=== PATIENT | male | born 1975 | race Caucasian/White ===

== ENCOUNTER 2022-02-09 08:27 | Outpatient (REF) | payer OTHER, SELFPAY ==
[2022-02-09 12:49] LABS: Alanine Aminotransferase 25 U/L (0-40); Anion Gap 13 (12-20); Aspartate Amino Transferase 18 U/L (5-37); Blood Urea Nitrogen 11 mg/dL (9-16); Calcium 9.4 mg/dL (8.4-10.2); Carbon Dioxide 26 mmol/L (22-29); Chloride 103 mmol/L (96-108); Cholesterol 222 mg/dL; Estimated Glomerular Filt Rate > 60; Glucose Fasting 92 mg/dL (60-99); HDL Cholesterol 55 mg/dL; LDL Cholesterol Calculated 140 mg/dl; PSA,Total (Free>4and<10) 0.75 ng/mL (0.00-4.00); Potassium 4.2 mmol/L (3.3-5.1); Sodium 138 mmol/L (135-145); Triglycerides 139 mg/dL
== END 2022-02-09 08:28 | disposition home or self-care (01) ==
LOC: HO.HMGCLDS 08:27
PROVIDERS: PCP Internal Medicine; Visit Provider Internal Medicine
DX: I87.2 Venous insufficiency (chronic) (peripheral) (principal); N40.1 Benign prostatic hyperplasia with lower urinary tract symptoms; E66.9 Obesity, unspecified; Z12.5 Encounter for screening for malignant neoplasm of prostate
CPT/HCPCS: 36415; 80048; 80061; 84153; 84450; 84460

== ENCOUNTER 2022-08-26 12:29 | Emergency (ER) | payer OTHER, SELFPAY ==
--- NOTE | ~2022-08-26 | XR_ITS ---
EXAMINATION: XR FOOT, RIGHT CLINICAL INFORMATION: Right foot pain. COMPARISON: None available. TECHNIQUE: AP, lateral, and oblique views of the right foot. FINDINGS: Mild first metatarsophalangeal degenerative joint changes are seen. There is no acute fracture or dislocation. The phalanges and metatarsals appear intact. There is mild soft tissue swelling. XR/XR foot RT min 3V IMPRESSION: Mild first metatarsophalangeal osteoarthritis and mild soft tissue swelling. No acute fracture.
--- NOTE | ~2022-08-26 | XR_ITS ---
EXAMINATION: XR ANKLE, RIGHT CLINICAL INFORMATION: Right ankle pain. COMPARISON: None available. TECHNIQUE: AP, lateral, and mortise views of the right ankle. An indicator arrow points to the lateral malleolus. FINDINGS: There is mild to moderate soft tissue swelling, more pronounced laterally. The ankle joint and mortise are intact. A corticated osseous densities seen subjacent to the lateral malleolus. There is no acute fracture or dislocation. The tarsal bones are normally aligned. XR/XR ankle RT min 3V IMPRESSION: Mild to moderate soft tissue swelling, more pronounced laterally without acute underlying osseous abnormality. Corticated osseous density subjacent to the lateral malleolus does not appear acute and could represent an ossification center. If the patient's pain and swelling persists or worsens, short-term repeat study is recommended to assess for change as indicated.
--- NOTE | ~2022-08-26 | XR_ITS ---
EXAMINATION: XR KNEE, RIGHT CLINICAL INFORMATION: Right knee pain. COMPARISON: None available. TECHNIQUE: Four views of the right knee. FINDINGS: Anterior cruciate ligament reconstruction post surgical changes are seen. An orthopedic button is seen laterally in the distal femoral metaphysis. Mild tricompartmental degenerative joint changes are seen. Mild femoral-tibial chondrocalcinosis is noted. There is no acute fracture, dislocation or joint effusion. The soft tissues are unremarkable. XR/XR knee RT 4V IMPRESSION: Postsurgical changes and mild degenerative joint changes suggesting osteoarthritis without overt acute abnormality.
[2022-08-26 12:43] VITALS: BP 168/95; PULSE 92; RESP 18; TEMP 36.2; O2SAT 98; BMI 34.3
--- NOTE | 2022-08-26 12:45 | ED_ITS ---
HPI - General Adult General Chief complaint: Fall Stated complaint: r ankle and knee inj at work Time Seen by Provider: 08/26/22 13:36 Source: patient, RN notes reviewed and old records reviewed Mode of arrival: ambulatory History of Present Illness HPI narrative: 46-year-old male with no significant past medical history presenting to the ED complaining of right knee, ankle, and foot pain/swelling s/p falling off a 3 ft ladder around 09:00 at work. Reports unclear how he fell however whole ladder tipped over, patient fell on right side, denies head trauma or LOC. Denies taking anticoagulation. Was minimally ambulatory after incident. Reports mild paresthesias to toes. Denies injury to the area, neck/back pain, urinary incontinence/retention, abdominal pain Onset (ago): hour(s) Related Data Home Medications Medication Instructions Recorded Confirmed No Known Home Meds 03/31/21 Allergies Allergy/AdvReac Type Severity Reaction Status Date / Time No Known Allergies Allergy Verified 08/26/22 12:46 Review of Systems Review of Systems: Constitutional: No Fever, No Chills ENT/Mouth: No Ear Pain, No Nasal Congestion, No sore throat, No Rhinorrhea, No Swallowing Difficulty Cardiovascular: No Chest Pain, No SOB Respiratory: No Cough, No Sputum, No Wheezing Gastrointestinal: No Nausea, No Vomiting, No Diarrhea, No Constipation, No Abdominal pain Genitourinary: No Dysuria, No Urinary Incontinence/retention, No Urgency, No Flank Pain Musculoskeletal: + joint pain, No Myalgias, + Joint Swelling Skin: No Skin Lesions, No rash Neuro: No Weakness, No Numbness, + Paresthesias Yes all other systems are reviewed and are negative Constitutional: Constitutional: Reports as per [facility] Past Medical History Attestation statement: The following information was validated with the patient. Source: old records reviewed Medical History BPH loc w urin obs/LUTS COVID-19 vaccine series declined History of COVID-19 Laceration of left ring finger Obesity (BMI 30.0-34.9) Peripheral venous insufficiency Refused influenza vaccine Tinea unguium Varicose veins of left lower extremity Surgical History History of repair of anterior cruciate ligament of right knee Hx of arthroscopy of right knee Status post phlebectomy Family History Family History Mother Breast cancer Myocardial infarct, Onset Age: 72 Father Factor V Leiden CAD (coronary artery disease) Myocardial infarct Social History Social History Housing: House Alcohol intake: current Alcohol intake frequency: a few times a month Patient Tobacco Use Status: Never used Tobacco Smoked in Last 30 Days: No e-Cigarette/Vaping Use: Never Used Use of substances other than those prescribed or required for medical reasons: No Advance Directives: No Advance Directives Information Provided: No service: Yes Current occupational status: employed Cognitive needs: No Hearing needs: No Vision needs: No Physical Exam ED Vital Signs: Vital Signs - 24 hr 08/26/22 12:43 08/26/22 14:45 Temperature 97.2 F Pulse Rate 92 80 Respiratory Rate 18 18 Blood Pressure 168/95 H 147/102 H Pulse Oximetry 98 99 Oxygen Delivery Method Room Air Room Air BMI result Body Mass Index 34.3 Const General: cooperative, healthy appearing and no acute distress Orientation/consciousness: patient oriented x3 Limitations: no limitations HENMT Head: Yes normal to inspection, Yes atraumatic, No Govea's sign and No raccoon eyes Ears: hearing grossly normal bilaterally General nose exam: Normal external nose present Face and sinus: Yes normal facial exam Eyes General: appearance normal, both eyes and all related structures EOM: EOMs intact bilaterally Neck Neck: Yes normal visual inspection and Yes no meningeal signs Chest Chest palpation & inspection: normal inspection of the chest, no crepitus and no tenderness Resp Effort & Inspection: normal respiratory effort and no respiratory distress Cardio Rate: regular rate GI Inspection: Yes normal to inspection Palpation (GI): Soft to palpation, nontender, no guarding and not rigid General: Yes no CVA tenderness Back/Spine/Pelvis Other: No midline cervical/thoracic/lumbar spinous tenderness/step-off or deformity Back: no CVA tenderness Skin Rashes: no rashes Wounds: no wounds Neuro General: patient oriented x3, tone normal, moves all extremities, no meningeal signs and no focal motor deficits Extrem Other: Right knee without appreciable deformity. + tender to palpation to medial aspect. Full range of motion intact. Neurovascular intact distally Right ankle and foot with noted swelling and diffuse tenderness to palpation. No erythema/ecchymosis or warmth. Limited ROM to ankle secondary to pain. Neurovascularly intact Course Course Course Narrative: This is an RME: Additional HPI, ROS, PE not included below will be deferred to primary provider. 46 year old male presents s/p fall off 3 ft ladder earlier this am. Reports he fell onto his left side but is having R. foot, ankle and knee pain. No head strike or LOC. Not on thinners. Told to come in [place] [facility]- imaging XR knee RT 4V IMPRESSION: Postsurgical changes and mild degenerative joint changes suggesting osteoarthritis without overt acute abnormality. XR ankle RT min 3V IMPRESSION: Mild to moderate soft tissue swelling, more pronounced laterally without acute underlying osseous abnormality. Corticated osseous density subjacent to the lateral malleolus does not appear acute and could represent an ossification center. ? If the patient's pain and swelling persists or worsens, short-term repeat study is recommended to assess for change as indicated. XR foot RT min 3V IMPRESSION: Mild first metatarsophalangeal osteoarthritis and mild soft tissue swelling. No acute fracture. > patient is supplied with Aircast and crutches to be weight-bearing as tolerated and have PCP/orthopedic follow-up as needed Results discussed with patient including worrisome signs and symptoms and strict return precautions, and when to return to the emergency department. They verbalized understanding and feel safe for discharge at this time. Medical Decision Making Medical Decision Making MDM Narrative: 46-year-old male with no significant past medical history presenting to the ED complaining of right knee, ankle, and foot pain/swelling s/p falling off a 3 ft ladder around 09:00AM at work. On exam vital signs stable, NAD, nontoxic appearing, no evidence of head trauma, no midline spinous tenderness throughout, physical exam as above with right ankle/foot swelling and tenderness as well as right knee medial aspect tenderness. Concern for fracture versus sprain. Low suspicion for ICH, septic joint, cellulitis Plan: X-rays Please refer to course for remaining clinical decision making, interpretation of labs/imaging results, and discussions with consultants and/or family members. Differential Diagnosis Differential Diagnoses: The differential diagnosis associated with the presentation includes As above Admission/Observation Consideration of admission/observation: Escalation of care including admission/observation considered Independent Interpretation I performed an independent interpretation of an: Plain X-Ray Radiology Impression Discussion of test interpretation with radiology: I have reviewed the radiologist's reading. External Record Review External record reviewed: Inpatient record, Office record, Outpatient record, Prior outpatient labs, Prior outpatient radiology, Primary care record and Out side ED record Tests considered The following testing was considered but not selected: As above Prescription Management I considered prescription management with: Pain Medication Discharge Plan Discharge Clinical Impression: Ankle sprain, Knee osteoarthritis Patient Disposition: Home, Self-Care Instructions: Ankle Sprain (DC), Osteoarthritis (DC) Additional Instructions: Your x-rays do not show any acute/new fractures, you do have a increased density seen on your ankle x-ray, if pain and swelling persists or worsens we do recommend repeat x-ray in the next week Wear Aircast as needed for comfort, compression and stability Use crutches as needed, bear weight as tolerated Ice and elevate Take Tylenol/ Motrin for pain/swelling If symptoms persist or worsen/pain becomes unbearable or area looks infected return to the ED Prescriptions: No Action No Known Home Meds Referrals: [facility] [place] [facility] [Provider Group] (as needed) [facility] [Outside] Melida Gaspar MD [Primary Care Provider] - Stand Alone Forms: Work/School Release Interventions: ED Discharge Assessment Last Done: 08/26/22 14:46 Discharge Date/Time: 08/26/22 14:47
[2022-08-26 14:45] VITALS: BP 147/102; PULSE 80; RESP 18; O2SAT 99
== END 2022-08-26 14:47 | disposition home or self-care (01) ==
PROVIDERS: Emergency Provider Emergency Medicine; PCP Internal Medicine
DX: S93.401A Sprain of unspecified ligament of right ankle, initial encounter (principal); M25.561 Pain in right knee; M79.671 Pain in right foot; W01.0XXA Fall on same level from slipping, tripping and stumbling without subsequent striking against object, initial encounter; Y93.9 Activity, unspecified; Y92.9 Unspecified place or not applicable; Y99.0 Civilian activity done for income or pay
CPT/HCPCS: 73564; 73610; 73630; 99283; 99284

== ENCOUNTER → 2022-09-01 15:12 | Outpatient (BNVA) | payer OTHER, SELFPAY | PROVIDERS: PCP Internal Medicine; Visit Provider Physician Assistant | DX: S93.401D Sprain of unspecified ligament of right ankle, subsequent encounter (principal); W11.XXXD Fall on and from ladder, subsequent encounter | CPT/HCPCS: 73700; 99204 ==

== ENCOUNTER → 2022-09-07 15:38 | Outpatient (BNVA) | payer OTHER, SELFPAY | PROVIDERS: PCP Internal Medicine; Visit Provider Physician Assistant Medical | DX: S93.401D Sprain of unspecified ligament of right ankle, subsequent encounter (principal); W01.0XXD Fall on same level from slipping, tripping and stumbling without subsequent striking against object, subsequent encounter | CPT/HCPCS: 99213 ==

== ENCOUNTER 2022-12-06 13:03 | Outpatient (AMB) | payer OTHER, SELFPAY ==
--- NOTE | 2022-12-06 13:36 | MHC.PC.OV ---
Vital Signs 12/06/22 13:37 Height 5 ft 4 in Weight 210 lb BMI 36.0 BP 130/90 H Blood Pressure Location Rt brachial Position Sitting Pulse 94 Pulse Source Pulse Oximeter Pulse Oximetry (%) 97 Oxygen Delivery Method Room Air Intake Visit Reasons: PE Intake Note: Pt is here today for his PE Allergies No Known Allergies Allergy (Verified 12/06/22 13:48) Medication List - Last Reconciled 12/06/22 by Melida Gaspar MD No Known Home Meds Tobacco use date assessed: 12/06/22 Dental Screening Dental Screen Date: 12/06/22 Did you have a dental visit in the last 12 months?: Yes Did you have a dental problem in the last 6 months where you did not have access to dental care?: No Was dental information given to patient?: Patient has dentist HPI PE HPI Details 47-year-old male, here today for his physical exam. He has history of benign prostatic hyperplasia without urinary symptoms , obesity, hx peripheral venous insufficiency,s/p phlebectomy by Dr. Dayday Marie, history of pillo COVID-19 infection twice, but does not want to get vaccinated. HPI Comments History of Present Illness Details 47-year-old male, here today for his physical exam. He has been feeling well, with no complaints at present time. Overdue for colon cancer screening, but does not want to do colonoscopy procedure. He also does not want to get any vaccinations. [facility] Medical History (Updated 12/06/22 @ 23:12 by Melida Gaspar MD) Hyperlipidemia COVID-19 vaccine series declined Refused influenza vaccine Tinea unguium Peripheral venous insufficiency Laceration of left ring finger Varicose veins of left lower extremity Obesity (BMI 30.0-34.9) History of COVID-19 BPH loc w urin obs/LUTS Surgical History Status post phlebectomy Hx of arthroscopy of right knee History of repair of anterior cruciate ligament of right knee Family History Mother Breast cancer Myocardial infarct, Onset Age: 72 Father Factor V Leiden CAD (coronary artery disease) Myocardial infarct Social History Housing: House Alcohol intake: current Alcohol intake frequency: a few times a month Patient Tobacco Use Status: Never used Tobacco e-Cigarette/Vaping Use: Never Used service: Yes Current occupational status: unemployed Cognitive needs: No Hearing needs: No Vision needs: No Questionnaire PHQ-9 Over the last 2 weeks, how often have you been bothered by any of the following problems? 1. Little interest or pleasure in doing things: not at all 2. Feeling down, depressed, or hopeless: not at all 3. Trouble falling or staying asleep, or sleeping too much: not at all 4. Feeling tired or having little energy: not at all 5. Poor appetite or overeating: not at all 6. Feeling bad about yourself - or that you are a failure or have let yourself or your family down: not at all 7. Trouble concentrating on things, such as reading the newspaper or watching television: not at all 8. Moving or speaking so slowly that other people could have noticed. Or the opposite - being so fidgety or restless that you have been moving around a lot more than usual: not at all 9. Thoughts that you would be better off or of hurting yourself in some way: not at all Total score: 0 Depression Screening Interpretation: Negative Depression Screening Done: Yes 22784 - PHQ-9 Billing: Yes Source: Developed by Drs. Karsten Owens, Maggie Anderson, Dioni Mcclendon and colleagues, with an educational amos from [email or web address]. Thrive Questionnaire Date Thrive assessed: 12/06/22 I am a: Patient What is your living situation today?: I have a steady place to live Within the past 12 months, did the food you bought not last and you didn't have the money to get more?: Never true Within the past 12 months, did you worry whether your food would run out before you got money to buy more?: Never true Do you have trouble paying for medicines?: No Do you have trouble getting transportation to medical appointments?: No Do you have trouble paying your heating and electricity bill?: No Do you have trouble taking care of your child, family member or friend?: No Do you have trouble with day-to-day activities such as bathing, preparing meals, shopping, managing finances, etc.?: No Are you currently unemployed and looking for a job?: No Are you interested in more education?: No AUDIT C Alcohol Use Questionnaire (AUDIT-C) 1. How often do you have a drink containing alcohol?: Monthly or less 2. How many drinks containing alcohol do you have on a typical day when you are drinking?: 1 or 2 3. How often do you have six or more drinks on one occasion?: Never Total Score: 1 LEOPOLDO-7 AMB Questionnaire LEOPOLDO-7 Date LEOPOLDO - 7 assessed: 12/06/22 Feeling nervous, anxious, or on edge: 0 = Not at all Not being able to stop or control worryin = Not at all Worrying too much about different things: 0 = Not at all Trouble relaxin = Not at all Being so restless that it is hard to sit still: 0 = Not at all Becoming easily annoyed or irritable: 0 = Not at all Feeling afraid as if something awful might happen: 0 = Not at all Total LEOPOLDO-7 score (0-4 normal; 5-9 mild; 10-14 moderate; 15-21 severe): 0 Source: Developed by Drs. Karsten Owens, Maggie Anderson, Dioni Mcclendon and colleagues, with an educational amos from [email or web address]. LEOPOLDO-7 Assessment Billing LEOPOLDO-7 Assessment Tool: LEOPOLDO-7 Assessment 45166 Review of Systems Const Denies body aches, Denies fatigue, Denies fever(s), Denies headache(s) and Denies weakness Eyes Details: farsighted, Denies change in vision ENT Denies dizziness, Denies headache(s), Denies nasal congestion and Denies nasal discharge Card Denies chest pain, Denies lightheadedness, Denies palpitations and Denies dyspnea Resp Denies cough, Denies dyspnea and Denies wheezing GI Denies abdominal pain, Denies change in bowel habits and Denies heartburn Denies dysuria, Denies urinary frequency and Denies urinary urgency Musc Reports no additional complaints Skin/Breast Denies lesions and Denies rash Neuro Denies dizziness, Denies headache(s) and Denies weakness Psych Reports no additional complaints Endo Denies fatigue, Denies polydipsia, Denies polyuria and Denies palpitations Carrillo/Lymph Denies easy bruising Aller/Immun Denies seasonal rhinorrhea and Denies wheezing Physical exam (Primary Care) Vital Signs: Last Vital Signs Pulse 94 12/06/22 13:37 BP 130/90 H 12/06/22 13:37 Pulse Ox 97 12/06/22 13:37 Oxygen Delivery Method Room Air 12/06/22 13:37 BMI result Body Mass Index 36.0 BMI Assessment/Plan discussion: High BMI High, discussed plan: lifestyle, weight reduction, dietary, physical activity and alcohol moderation Tobacco/Smoking Status: Tobacco use Status Tobacco use date assessed 12/06/22 12/06/22 13:41 Patient Tobacco Use Status Never used Tobacco 12/06/22 13:41 e-Cigarette/Vaping Use Never Used 12/06/22 13:41 PHQ-9: PHQ-9 Score PHQ-9: Total score 0 12/06/22 13:50 Depression Screening Interpretation: Negative Thrive Assessment: Date of Thrive Assessment Date Thrive assessed 12/06/22 12/06/22 13:44 Const Other: Alert oriented x3, obese, no acute cardiorespiratory distress, ambulatory normal gait Orientation/consciousness: patient oriented x3 HENMT Head: Yes normocephalic and Yes atraumatic General nose exam: Normal external nose present and No nasal discharge present Face and sinus: Yes face symmetric Mouth: Normal oral and palatal mucosa present and moist mucous membranes Eyes General: appearance normal, both eyes and all related structures Neck Other: Supple, no lymphadenopathy palpated, thyroid gland nonpalpable, full range of motion Chest Chest palpation & inspection: normal inspection of the chest Resp Effort & Inspection: normal respiratory effort and able to speak in complete sentences Auscultation: clear to auscultation bilaterally Cardio Other: S1-S2 present regular rate and rhythm GI Other: Normal bowel sounds, nontender, no mass palpated Back/Spine/Pelvis Back: No back tenderness Skin General skin exam: no rashes or lesions noted Neuro General: patient oriented x3, gait normal, tone normal, moves all extremities, Normal light touch and pain sensation, no focal motor deficits and CN's II-XI intact bilaterally Extrem General: Yes full ROM, Yes no joint enlargement, Yes no clubbing, cyanosis or edema, Yes no pedal edema, Yes no calf tenderness and Yes normal gait Psych Appearance: grossly normal and well kempt Speech and movement: Normal speech and movement present Affect: normal affect Attitude: cooperative Assessment and Plan Assessment & Plan (1) Adult general medical exam: Code(s): Z00.00 - Encounter for general adult medical examination without abnormal findings Plan: Will check appropriate labs. Recommended dental visit every 6 months and regular eye exams, at least every 2 years. Take adequate calcium in diet and vitamin-D 3 at 2000 IU per cap once a day, in addition to weight-bearing exercises to help maintain good muscle tone and weight control. Instructed to do self-exam to check for any mass. Patient declines getting any vaccines. Does not want to get colonoscopy screening for colon cancer but willing to do Cologuard test, which was ordered today (2) Hyperlipidemia: Code(s): E78.5 - Hyperlipidemia, unspecified Qualifiers: Hyperlipidemia type: pure hypercholesterolemia Qualified Code(s): E78.00 - Pure hypercholesterolemia, unspecified Plan: Fasting lipid panel ordered, reinforced importance of following healthy diet and getting regular exercise. (3) Obesity (BMI 30.0-34.9): Code(s): E66.9 - Obesity, unspecified Plan: Recommended focusing on improving health instead of dieting. Mediterranean diet is a healthy diet that helps, limit food high in fat, sugar, and calories. Eat slowly, pay attention to portion sizes, plan your meals ahead of time, start regular physical activity, at least 150 minutes of moderate intensity exercise, or 90 minutes per week of vigorous exercise. Keeping a food diary, tracking what you eat and your physical activity can help assess what improvements you can make. There are many health problems associated with being overweight/obese, so it is important to improve your diet and exercise. There are medications and surgical options available, but Lifestyle changes are the 1st step. (4) Refused influenza vaccine: Code(s): Z28.21 - Immunization not carried out because of patient refusal (5) COVID-19 vaccine series declined: Code(s): Z28.21 - Immunization not carried out because of patient refusal; Z28.310 - Unvaccinated for COVID-19 Orders: Orders Lipid Panel Today E66.9 - Obesity, unspecified, E78.5 - Hyperlipidemia, unspecified Basic Metabolic Panel Fasting Today E66.9 - Obesity, unspecified, E78.5 - Hyperlipidemia, unspecified Vitamin D 25-OH Total Today E66.9 - Obesity, unspecified, E78.5 - Hyperlipidemia, unspecified Alanine Aminotransferase Today E66.9 - Obesity, unspecified, E78.5 - Hyperlipidemia, unspecified Aspartate Amino Transferase Today E66.9 - Obesity, unspecified, E78.5 - Hyperlipidemia, unspecified Referrals Cologuard Test Z12.11 - Encounter for screening for malignant neoplasm of colon, Z12.12 - Encounter for screening for malignant neoplasm of rectum Coding Level of Care Code Est Pt Prev Care 40-64y(61773) Diagnoses Adult general medical exam Z00.00 Pure hypercholesterolemia E78.00 Hyperlipidemia type: pure hypercholesterolemia Obesity (BMI 30.0-34.9) E66.9 Refused influenza vaccine Z28.21 COVID-19 vaccine series declined Z28.21; Z28.310 Additional Codes LEOPOLDO-7 Assessment Billing - LEOPOLDO-7 Assessment Tool: LEOPOLDO-7 Assessment [id number] ([id number])
[2022-12-06 13:37] VITALS: BP 130/90; PULSE 94; O2SAT 97; BMI 36.0
== END 2022-12-06 14:07 | disposition home or self-care (01) ==
PROVIDERS: Visit Provider Internal Medicine
DX: Z00.00 Encounter for general adult medical examination without abnormal findings (principal); E78.00 Pure hypercholesterolemia, unspecified; E66.9 Obesity, unspecified; Z68.36 Body mass index [BMI] 36.0-36.9, adult; Z28.21 Immunization not carried out because of patient refusal; Z28.310 Unvaccinated for COVID-19
CPT/HCPCS: 99396

== ENCOUNTER 2022-12-07 06:44 | Outpatient (REF) | payer OTHER, SELFPAY | END 2022-12-07 06:45 | disposition home or self-care (01) | LOC: HO.HMGCLDS 06:44 | PROVIDERS: PCP Internal Medicine; Visit Provider Internal Medicine | DX: E78.5 Hyperlipidemia, unspecified (principal); E66.9 Obesity, unspecified | CPT/HCPCS: 36415; 80048; 80061; 82306; 84450; 84460 ==

== ENCOUNTER 2023-05-12 09:06 | Outpatient (AMB) | payer OTHER, SELFPAY ==
--- NOTE | 2023-05-12 09:11 | A.OFFPC_ITS ---
<Statement entered by Melida Gaspar MD - 07/04/24 15:28> This note has been administratively?closed. Vital Signs 05/12/23 09:25 05/12/23 10:01 Height 5 ft 4 in Weight 214 lb BMI 36.7 BP 136/90 H 120/85 Blood Pressure Location Lt brachial Lt brachial Position Sitting Sitting Pulse 96 Pulse Source Pulse Oximeter Pulse Oximetry (%) 99 Oxygen Delivery Method Room Air Intake Visit Reasons: Annual PE Intake Note: Pt is here today for his PE: Last cologuard 12/23/22 Allergies No Known Allergies Allergy (Verified 05/12/23 09:50) Medication List - Last Reconciled 05/12/23 by Melida Gaspar MD No Known Home Meds Tobacco use date assessed: 05/12/23 Dental Screening Dental Screen Date: 05/12/23 Did you have a dental visit in the last 12 months?: Yes Did you have a dental problem in the last 6 months where you did not have access to dental care?: No Was dental information given to patient?: Patient has dentist [facility] Medical History (Updated 12/06/22 @ 23:12 by Melida Gaspar MD) Hyperlipidemia COVID-19 vaccine series declined Refused influenza vaccine Tinea unguium Peripheral venous insufficiency Laceration of left ring finger Varicose veins of left lower extremity Obesity (BMI 30.0-34.9) History of COVID-19 BPH loc w urin obs/LUTS Surgical History Status post phlebectomy Hx of arthroscopy of right knee History of repair of anterior cruciate ligament of right knee Family History Mother Breast cancer Myocardial infarct, Onset Age: 72 Father Factor V Leiden CAD (coronary artery disease) Myocardial infarct Social History Housing: House Alcohol intake: current Alcohol intake frequency: a few times a month Patient Tobacco Use Status: Never used Tobacco e-Cigarette/Vaping Use: Never Used service: Yes Current occupational status: unemployed Current occupation: [employer] Cognitive needs: No Hearing needs: No Vision needs: No Questionnaire PHQ-9 Over the last 2 weeks, how often have you been bothered by any of the following problems? 1. Little interest or pleasure in doing things: not at all 3. Trouble falling or staying asleep, or sleeping too much: not at all 4. Feeling tired or having little energy: not at all 5. Poor appetite or overeating: not at all 6. Feeling bad about yourself - or that you are a failure or have let yourself or your family down: not at all 7. Trouble concentrating on things, such as reading the newspaper or watching television: not at all 8. Moving or speaking so slowly that other people could have noticed. Or the opposite - being so fidgety or restless that you have been moving around a lot more than usual: not at all 9. Thoughts that you would be better off or of hurting yourself in some way: not at all Depression Screening Interpretation: Negative Depression Screening Done: Yes 56718 - PHQ-9 Billing: Yes Source: Developed by Drs. Karsten Owens, Maggie Anderson, Dioni Mcclendon and colleagues, with an educational amos from [employer]. Thrive Questionnaire Date Thrive assessed: 05/12/23 I am a: Patient What is your living situation today?: I have a steady place to live Within the past 12 months, did the food you bought not last and you didn't have the money to get more?: Never true Within the past 12 months, did you worry whether your food would run out before you got money to buy more?: Never true Do you have trouble paying for medicines?: No Do you have trouble getting transportation to medical appointments?: No Do you have trouble paying your heating and electricity bill?: No Do you have trouble taking care of your child, family member or friend?: No Do you have trouble with day-to-day activities such as bathing, preparing meals, shopping, managing finances, etc.?: No Are you currently unemployed and looking for a job?: No Are you interested in more education?: No THRIVE Score: 0 AUDIT C Alcohol Use Questionnaire (AUDIT-C) 1. How often do you have a drink containing alcohol?: Monthly or less 2. How many drinks containing alcohol do you have on a typical day when you are drinking?: 1 or 2 3. How often do you have six or more drinks on one occasion?: Never Total Score: 1 LEOPOLDO-7 AMB Questionnaire LEOPOLDO-7 Date LEOPOLDO - 7 assessed: 05/12/23 Feeling nervous, anxious, or on edge: 0 = Not at all Not being able to stop or control worryin = Not at all Worrying too much about different things: 0 = Not at all Trouble relaxin = Not at all Being so restless that it is hard to sit still: 0 = Not at all Becoming easily annoyed or irritable: 0 = Not at all Feeling afraid as if something awful might happen: 0 = Not at all Total LEOPOLDO-7 score (0-4 normal; 5-9 mild; 10-14 moderate; 15-21 severe): 0 Source: Developed by Drs. Karsten Owens, Maggie Anderson, Dioni Mcclendon and colleagues, with an educational amos from [employer]. LEOPOLDO-7 Assessment Billing LEOPOLDO-7 Assessment Tool: LEOPOLDO-7 Assessment 60893 Review of Systems Const Denies body aches, Denies fatigue, Denies fever(s), Denies headache(s) and Denies weakness Eyes Details: farsighted, Denies change in vision ENT Denies dizziness, Denies headache(s), Denies nasal congestion and Denies nasal discharge Card Denies chest pain, Denies lightheadedness, Denies palpitations and Denies dysp zain Resp Denies cough, Denies dyspnea and Denies wheezing GI Denies abdominal pain, Denies change in bowel habits and Denies heartburn Denies dysuria, Denies urinary frequency and Denies urinary urgency Musc Reports no additional complaints Skin/Breast Denies lesions and Denies rash Neuro Denies dizziness, Denies headache(s) and Denies weakness Psych Reports no additional complaints Endo Denies fatigue, Denies polydipsia, Denies polyuria and Denies palpitations Carrillo/Lymph Denies easy bruising Aller/Immun Denies seasonal rhinorrhea and Denies wheezing Physical exam (Primary Care) Vital Signs: Last Vital Signs Pulse 96 05/12/23 09:25 BP 120/85 05/12/23 10:01 Pulse Ox 99 05/12/23 09:25 Oxygen Delivery Method Room Air 05/12/23 09:25 BMI result Body Mass Index 36.7 BMI Assessment/Plan discussion: High BMI High, discussed plan: lifestyle, weight reduction, dietary, physical activity and alcohol moderation Tobacco/Smoking Status: Tobacco use Status Tobacco use date assessed 05/12/23 05/12/23 09:32 Patient Tobacco Use Status Never used Tobacco 05/12/23 09:12 e-Cigarette/Vaping Use Never Used 05/12/23 09:12 PHQ-9: PHQ-9 Score PHQ-9: Total score 0 05/12/23 09:27 Depression Screening Interpretation: Negative Thrive Assessment: Date of Thrive Assessment Date Thrive assessed 05/12/23 05/12/23 09:27 Const Other: Alert oriented x3, obese, no acute cardiorespiratory distress, ambulatory normal gait Orientation/consciousness: patient oriented x3 HENMT Head: Yes normocephalic and Yes atraumatic General nose exam: Normal external nose present and No nasal discharge present Face and sinus: Yes face symmetric Mouth: Normal oral and palatal mucosa present and moist mucous membranes Eyes General: appearance normal, both eyes and all related structures Neck Other: Supple, no lymphadenopathy palpated, thyroid gland nonpalpable, full range of motion Chest Chest palpation & inspection: normal inspection of the chest Resp Effort & Inspection: normal respiratory effort and able to speak in complete sentences Auscultation: clear to auscultation bilaterally Cardio Other: S1-S2 present regular rate and rhythm GI Other: Normal bowel sounds, nontender, no mass palpated Back/Spine/Pelvis Back: No back tenderness Skin General skin exam: no rashes or lesions noted Neuro General: patient oriented x3, gait normal, tone normal, moves all extremities, Normal light touch and pain sensation, no focal motor deficits and CN's II-XI intact bilaterally Extrem General: Yes full ROM, Yes no joint enlargement, Yes no clubbing, cyanosis or edema, Yes no pedal edema, Yes no calf tenderness and Yes normal gait Psych Appearance: grossly normal and well kempt Speech and movement: Normal speech and movement present Affect: normal affect Attitude: cooperative Assessment and Plan Assessment & Plan (1) Annual visit for general adult medical examination with abnormal findings: Code(s): Z00.01 - Encounter for general adult medical examination with abnormal findings (2) Hyperlipidemia: Code(s): E78.5 - Hyperlipidemia, unspecified Qualifiers: Hyperlipidemia type: pure hypercholesterolemia Qualified Code(s): E78.00 - Pure hypercholesterolemia, unspecified (3) Obesity (BMI 30.0-34.9): Code(s): E66.9 - Obesity, unspecified (4) Refused influenza vaccine: Code(s): Z28.21 - Immunization not carried out because of patient refusal (5) COVID-19 vaccine series declined: Code(s): Z28.21 - Immunization not carried out because of patient refusal; Z28.310 - Unvaccinated for COVID-19 (6) COVID-19 vaccination declined: Code(s): Z28.21 - Immunization not carried out because of patient refusal Orders: Orders PSA,Total (Free>4and<10) Today E66.9 - Obesity, unspecified, E78.5 - Hyperlipidemia, unspecified, N40.1 - Benign prostatic hyperplasia with lower urinary tract symptoms Lipid Panel Today E66.9 - Obesity, unspecified, E78.5 - Hyperlipidemia, unspecified, N40.1 - Benign prostatic hyperplasia with lower urinary tract symptoms Aspartate Amino Transferase Today E66.9 - Obesity, unspecified, E78.5 - Hyperlipidemia, unspecified, N40.1 - Benign prostatic hyperplasia with lower urinary tract symptoms Basic Metabolic Panel Fasting Today E66.9 - Obesity, unspecified, E78.5 - Hyperlipidemia, unspecified, N40.1 - Benign prostatic hyperplasia with lower urinary tract symptoms Alanine Aminotransferase Today E66.9 - Obesity, unspecified, E78.5 - Hyperlipidemia, unspecified, N40.1 - Benign prostatic hyperplasia with lower urinary tract symptoms Complete Blood Count Auto Diff Today E66.9 - Obesity, unspecified, E78.5 - Hyperlipidemia, unspecified, N40.1 - Benign prostatic hyperplasia with lower urinary tract symptoms Coding Level of Care Code Est Pt Prev Care 40-64y(28642) Diagnoses Annual visit for general adult medical examination with abnormal findings Z00.01 Pure hypercholesterolemia E78.00 Hyperlipidemia type: pure hypercholesterolemia Obesity (BMI 30.0-34.9) E66.9 Refused influenza vaccine Z28.21 COVID-19 vaccine series declined Z28.21; Z28.310 COVID-19 vaccination declined Z28.21 Additional Codes LEOPOLDO-7 Assessment Billing - LEOPOLDO-7 Assessment Tool: LEOPOLDO-7 Assessment [id number] ([id number])
[2023-05-12 09:25] VITALS: BP 136/90; PULSE 96; O2SAT 99; BMI 36.7
[2023-05-12 10:01] VITALS: BP 120/85
== END 2023-05-12 10:09 | disposition home or self-care (01) ==
PROVIDERS: PCP Internal Medicine; Visit Provider Internal Medicine
DX: Z00.01 Encounter for general adult medical examination with abnormal findings (principal); E78.00 Pure hypercholesterolemia, unspecified; E66.9 Obesity, unspecified; Z28.21 Immunization not carried out because of patient refusal; Z28.310 Unvaccinated for COVID-19
CPT/HCPCS: 99499

== ENCOUNTER 2023-05-12 10:10 | Outpatient (REF) | payer OTHER, SELFPAY ==
[2023-05-12 13:22] LABS: MANUAL DIFF FLAG NO
[2023-05-12 13:35] LABS: Basophils Absolute Auto 0.1 X10*3/uL (0.0-0.2); Eosinophils Absolute Auto 0.3 X10*3/uL (0.0-0.4); Eosinophils Percent Auto 4.3 % (0-4); Hematocrit 47.5 % (42.0-52.0); Hemoglobin 15.9 g/dl (14.0-18.0); Imm Gran Abs Auto 0.02 X10*3/uL (0.00-0.03); Imm Gran Pct Auto 0.3 % (0.0-0.4); Lymphocytes Absolute Auto 1.9 X10*3/uL (1.2-4.9); Lymphocytes Percent Auto 27.6 % (20-40); Mean Corpuscular HGB Conc 33.5 g/dl (31.0-36.0); Mean Corpuscular Hemoglobin 27.9 pg (27.0-33.0); Mean Corpuscular Volume 83.3 fL (80.0-98.0); Mean Platelet Volume 10.1 fL (9.4-12.4); Monocytes Absolute Auto 0.5 X10*3/uL (0.1-1.2); Monocytes Percent Auto 7.6 % (2-11); Neutrophils Percent Auto 59.2 % (45-73); Platelet Count 249 X10*3/uL (160-400); Red Cell Distribution Width 12.3 % (11.0-16.0); White Blood Count 6.7 X10*3/uL (4.8-10.8)
[2023-05-12 13:47] LABS: Alanine Aminotransferase 21 U/L (0-40); Anion Gap 14 (12-20); Aspartate Amino Transferase 18 U/L (5-37); Blood Urea Nitrogen 8 mg/dL (9-16); Calcium 11.3 mg/dL (8.4-10.2); Carbon Dioxide 27 mmol/L (22-29); Chloride 103 mmol/L (96-108); Cholesterol 235 mg/dL (<200); Estimated Glomerular Filt Rate > 60; Glucose Fasting 92 mg/dL (60-99); HDL Cholesterol 49 mg/dL (>40); LDL Cholesterol Calculated 164 mg/dL (<100); Potassium 4.9 mmol/L (3.3-5.1); Sodium 139 mmol/L (135-145); Triglycerides 113 mg/dL (<150)
[2023-05-12 14:06] LABS: PSA,Total (Free>4and<10) 0.63 ng/mL (0.00-4.00)
== END 2023-05-12 10:11 | disposition home or self-care (01) ==
LOC: HO.HMGCLDS 10:10
PROVIDERS: PCP Internal Medicine; Visit Provider Internal Medicine
DX: Z12.5 Encounter for screening for malignant neoplasm of prostate (principal); N40.1 Benign prostatic hyperplasia with lower urinary tract symptoms; E66.9 Obesity, unspecified; E78.5 Hyperlipidemia, unspecified
CPT/HCPCS: 36415; 80048; 80061; 84153; 84450; 84460; 85025

== ENCOUNTER 2024-05-28 08:10 | Outpatient (REF) | payer BC, SELFPAY ==
[2024-05-28 10:04] LABS: MANUAL DIFF FLAG NO
[2024-05-28 10:13] LABS: Basophils Percent Auto 0.6 % (0-2); Eosinophils Absolute Auto 0.2 X10*3/uL (0.0-0.4); Eosinophils Percent Auto 2.8 % (0-4); Hematocrit 50.8 % (42.0-52.0); Hemoglobin 16.5 g/dl (14.0-18.0); Imm Gran Abs Auto 0.03 X10*3/uL (0.00-0.03); Imm Gran Pct Auto 0.4 % (0.0-0.4); Lymphocytes Absolute Auto 1.5 X10*3/uL (1.2-4.9); Mean Corpuscular HGB Conc 32.5 g/dl (31.0-36.0); Mean Corpuscular Hemoglobin 27.5 pg (27.0-33.0); Mean Corpuscular Volume 84.7 fL (80.0-98.0); Mean Platelet Volume 9.6 fL (9.4-12.4); Monocytes Absolute Auto 0.4 X10*3/uL (0.1-1.2); Monocytes Percent Auto 6.4 % (2-11); Neutrophils Absolute Auto 4.5 x10*3/uL (2.0-8.3); Neutrophils Percent Auto 66.8 % (45-73); Platelet Count 267 X10*3/uL (160-400); Red Cell Distribution Width 12.4 % (11.0-16.0); White Blood Count 6.7 X10*3/uL (4.8-10.8)
[2024-05-28 11:21] LABS: Alanine Aminotransferase 26 U/L (0-40); Anion Gap 13 (12-20); Aspartate Amino Transferase 21 U/L (5-37); Blood Urea Nitrogen 12 mg/dL (9-16); Carbon Dioxide 27 mmol/L (22-29); Chloride 104 mmol/L (96-108); Cholesterol 218 mg/dL (<200); Estimated Glomerular Filt Rate > 60; Glucose Fasting 97 mg/dL (60-99); HDL Cholesterol 43 mg/dL (>40); LDL Cholesterol Calculated 149 mg/dL (<100); Potassium 4.8 mmol/L (3.3-5.1); Sodium 139 mmol/L (135-145); Triglycerides 133 mg/dL (<150)
[2024-05-28 11:22] LABS: PSA,Total (Free>4and<10) 0.81 ng/mL (0.00-4.00); Vitamin D 25-OH Total 37.1 ng/mL (>30)
[2024-05-29 14:43] LABS: Calcium, Ionized 5.2 mg/dL (4.7-5.5)
== END 2024-05-28 08:11 | disposition home or self-care (01) ==
LOC: HO.HMGCLDS 08:10
PROVIDERS: PCP Internal Medicine; Visit Provider Internal Medicine
DX: Z00.01 Encounter for general adult medical examination with abnormal findings (principal); N40.1 Benign prostatic hyperplasia with lower urinary tract symptoms; N13.8 Other obstructive and reflux uropathy; E66.9 Obesity, unspecified; Z68.35 Body mass index [BMI] 35.0-35.9, adult; E78.00 Pure hypercholesterolemia, unspecified; E83.52 Hypercalcemia; Z71.89 Other specified counseling; Z12.5 Encounter for screening for malignant neoplasm of prostate
CPT/HCPCS: 36415; 80048; 80061; 82306; 82330; 84153; 84450; 84460; 85025; 96127

== ENCOUNTER 2024-05-28 08:10 | Outpatient (AMB) | payer BC, SELFPAY ==
--- NOTE | 2024-05-28 08:24 | MHC.PC.OV ---
Vital Signs 05/28/24 08:56 Height 5 ft 4 in Weight 209 lb BMI 35.9 BP 118/86 Blood Pressure Location Rt brachial Position Sitting Respiration 16 Pulse 83 Pulse Source Pulse Oximeter Temp 98.3 F Temp Source Oral Pulse Oximetry (%) 96 Oxygen Delivery Method Room Air Intake Visit Reasons: PE Intake Note: Pt is here today for his PE: last cologuard 12/23/22 Allergies No Known Allergies Allergy (Verified 05/28/24 09:06) Medication List - Last Reconciled 05/28/24 by Melida Gaspar MD No Known Home Meds Tobacco use date assessed: 05/28/24 Dental Screening Dental Screen Date: 05/28/24 Did you have a dental visit in the last 12 months?: Yes Did you have a dental problem in the last 6 months where you did not have access to dental care?: No Was dental information given to patient?: Patient has dentist HPI PE HPI Details 48 year old male, here today for his physical exam. He has history of hyperlipidemia, obesity, benign prostatic hypertrophy without urinary obstruction or lower urinary tract symptoms he has changed his diet, has been eating 2 full meals a day and snacks in between, has been avoiding bedtime snacking and has started exercising, and has lost approximately 17 lb in the last 2 months. Patient has had his tetanus diphtheria booster but did not get his yearly flu vaccine , and does not want to get a COVID booster.. He has been feeling well but does notice getting up more frequently during the night to urinate. He had a negative Cologuard in 2022, would like to have a colonoscopy instead of Cologuard on the next scheduled screening which is next year. He goes to [facility] for his yearly eye exam and gets dental cleaning every 6 months If he fell off a ladder at work last May 2023 and underwent arthroscopic surgery in right ankle with debridement and reconstruction of lateral ligament in his right ankle, currently still going to physical therapy [facility] Medical History Hyperlipidemia COVID-19 vaccine series declined Refused influenza vaccine Tinea unguium Peripheral venous insufficiency Laceration of left ring finger Varicose veins of left lower extremity Obesity (BMI 30.0-34.9) History of COVID-19 BPH loc w urin obs/LUTS Surgical History (Updated 05/28/24 @ 09:27 by Melida Gaspar MD) History of arthroscopy Status post phlebectomy Hx of arthroscopy of right knee History of repair of anterior cruciate ligament of right knee Family History Mother Breast cancer Myocardial infarct, Onset Age: 72 Father Factor V Leiden CAD (coronary artery disease) Myocardial infarct Social History Housing: House Alcohol intake: current Alcohol intake frequency: a few times a month Patient Tobacco Use Status: Never used Tobacco e-Cigarette/Vaping Use: Never Used service: Yes Current occupational status: unemployed Current occupation: [employer] Cognitive needs: No Hearing needs: No Vision needs: No Questionnaire PHQ-9 Over the last 2 weeks, how often have you been bothered by any of the following problems? 1. Little interest or pleasure in doing things: not at all 2. Feeling down, depressed, or hopeless: not at all 3. Trouble falling or staying asleep, or sleeping too much: not at all 4. Feeling tired or having little energy: not at all 5. Poor appetite or overeating: not at all 6. Feeling bad about yourself - or that you are a failure or have let yourself or your family down: not at all 7. Trouble concentrating on things, such as reading the newspaper or watching television: not at all 8. Moving or speaking so slowly that other people could have noticed. Or the opposite - being so fidgety or restless that you have been moving around a lot more than usual: not at all 9. Thoughts that you would be better off or of hurting yourself in some way: not at all Total score: 0 Depression Screening Interpretation: Negative Depression Screening Done: Yes 83537 - PHQ-9 Billing: Yes Source: Developed by Drs. Karsten Owens, Maggie Anderson, Dioni Mcclendon and colleagues, with an educational amos from [employer]. Thrive Questionnaire Date Thrive assessed: 05/28/24 I am a: Patient What is your living situation today?: I have a steady place to live Within the past 12 months, did the food you bought not last and you didn't have the money to get more?: Never true Within the past 12 months, did you worry whether your food would run out before you got money to buy more?: Never true Do you have trouble paying for medicines?: No Do you have trouble getting transportation to medical appointments?: No Do you have trouble paying your heating and electricity bill?: No Do you have trouble taking care of your child, family member or friend?: No Do you have trouble with day-to-day activities such as bathing, preparing meals, shopping, managing finances, etc.?: No Are you currently unemployed and looking for a job?: No Are you interested in more education?: No Please select the resources that you would like help with: None Currently or been in a relationship where the following occur: No concerns reported THRIVE Score: 0 AUDIT C Alcohol Use Questionnaire (AUDIT-C) 1. How often do you have a drink containing alcohol?: Monthly or less 2. How many drinks containing alcohol do you have on a typical day when you are drinking?: 3 or 4 3. How often do you have six or more drinks on one occasion?: Less than monthly Total Score: 3 LEOPOLDO-7 AMB Questionnaire LEOPOLDO-7 Date LEOPOLDO - 7 assessed: 05/28/24 Feeling nervous, anxious, or on edge: 0 = Not at all Not being able to stop or control worryin = Not at all Worrying too much about different things: 0 = Not at all Trouble relaxin = Not at all Being so restless that it is hard to sit still: 0 = Not at all Becoming easily annoyed or irritable: 0 = Not at all Feeling afraid as if something awful might happen: 0 = Not at all Total LEOPOLDO-7 score (0-4 normal; 5-9 mild; 10-14 moderate; 15-21 severe): 0 Source: Developed by Drs. Karsten Owens, Maggie Anderson, Dioni Mcclendon and colleagues, with an educational amos from [employer]. LEOPOLDO-7 Assessment Billing LEOPOLDO-7 Assessment Tool: LEOPOLDO-7 Assessment 23555 Review of Systems Const Denies body aches, Denies fatigue, Denies fever(s), Denies headache(s) and Denies weakness Eyes Details: farsighted, goes to [facility] Denies change in vision ENT Details: Get dental prophylaxis every 6 Denies dizziness, Denies headache(s), Denies nasal congestion and Denies nasal discharge Card Denies chest pain, Denies lightheadedness, Denies palpitations and Denies dyspnea Resp Denies cough, Denies dyspnea and Denies wheezing GI Denies abdominal pain, Denies change in bowel habits and Denies heartburn Reports as per HPI, Denies dysuria and Denies urinary urgency Musc Reports no additional complaints Skin/Breast Denies lesions and Denies rash Neuro Denies dizziness, Denies headache(s) and Denies weakness Psych Reports no additional complaints Endo Denies fatigue, Denies polydipsia, Denies polyuria and Denies palpitations Carrillo/Lymph Denies easy bruising Aller/Immun Denies seasonal rhinorrhea and Denies wheezing Physical exam (Primary Care) Vital Signs: Last Vital Signs Temp 98.3 F 05/28/24 08:56 Pulse 83 05/28/24 08:56 Resp 16 05/28/24 08:56 BP 118/86 05/28/24 08:56 Pulse Ox 96 05/28/24 08:56 Oxygen Delivery Method Room Air 05/28/24 08:56 BMI result Body Mass Index 35.9 BMI Assessment/Plan discussion: High BMI High, discussed plan: lifestyle, weight reduction, dietary, physical activity and alcohol moderation Tobacco/Smoking Status: Tobacco use Status Tobacco use date assessed 05/28/24 05/28/24 08:25 Patient Tobacco Use Status Never used Tobacco 05/28/24 08:25 e-Cigarette/Vaping Use Never Used 05/28/24 08:25 PHQ-9: PHQ-9 Score PHQ-9: Total score 0 05/28/24 09:02 Depression Screening Interpretation: Negative Thrive Assessment: Date of Thrive Assessment Date Thrive assessed 05/28/24 05/28/24 08:25 Currently or been in a relationship where the following occur: No concerns reported Advance Care Planning discussion: Completed/Scanned Date of discussion: 05/28/24 Who was present: Patient Forms completed: Health Care Proxy Time spent: 16-45 minutes Actual minutes spent: 3 Const Other: Alert oriented x3, obese, no acute cardiorespiratory distress, ambulatory normal gait HENMT Head: Yes normocephalic General nose exam: Normal external nose present and No nasal discharge present Face and sinus: Yes face symmetric Mouth: Normal oral and palatal mucosa present and moist mucous membranes Eyes General: appearance normal, both eyes and all related structures Neck Other: Supple, no lymphadenopathy palpated, thyroid gland nonpalpable, full range of motion Chest Chest palpation & inspection: normal inspection of the chest Resp Effort & Inspection: normal respiratory effort and able to speak in complete sentences Auscultation: clear to auscultation bilaterally Cardio Other: S1-S2 present regular rate and rhythm GI Other: Normal bowel sounds, nontender, no mass palpated General: Yes no CVA tenderness Back/Spine/Pelvis Back: no CVA tenderness and No back tenderness Skin General skin exam: no rashes or lesions noted Neuro General: gait normal, tone normal, moves all extremities, Normal light touch and pain sensation, no focal motor deficits and CN's II-XI intact bilaterally Extrem General: Yes full ROM, Yes no joint enlargement, Yes no clubbing, cyanosis or edema, Yes no pedal edema, Yes no calf tenderness and Yes normal gait Psych Appearance: grossly normal and well kempt Speech and movement: Normal speech and movement present Affect: normal affect Attitude: cooperative Coding Level of Care Code Est Pt Prev Care 40-64y(83876) Diagnoses BPH loc w urin obs/LUTS N40.1 Obesity (BMI 30.0-34.9) E66.9 Pure hypercholesterolemia E78.00 Hyperlipidemia type: pure hypercholesterolemia Encounter for counseling regarding advance directives Z71.89 Annual visit for general adult medical examination with abnormal findings Z00.01 Hypercalcemia E83.52 Additional Codes LEOPOLDO-7 Assessment Billing - LEOPOLDO-7 Assessment Tool: LEOPOLDO-7 Assessment 80085 ([id number]) PHQ-9 - 43696 - PHQ-9 Billing: Yes ([id number]) Vital Signs *Quality* - Advance Care Planning discussion: Completed/Scanned ([id number]) Vital Signs *Quality* - Time spent: 16-45 minutes ([id number]) Assessment & Plan Assessment & Plan (1) BPH loc w urin obs/LUTS: Code(s): N40.1 - Benign prostatic hyperplasia with lower urinary tract symptoms Category: Medical Plan: Ordered total PSA level (2) Obesity (BMI 30.0-34.9): Code(s): E66.9 - Obesity, unspecified Category: Medical Plan: Continue with regular exercise and adherence to healthy eating habits. Has lost approximately 17 lb in last 2 months. (3) Hyperlipidemia: Code(s): E78.5 - Hyperlipidemia, unspecified Category: Medical Qualifiers: Hyperlipidemia type: pure hypercholesterolemia Qualified Code(s): E78.00 - Pure hypercholesterolemia, unspecified Plan: Fasting lipid panel ordered. Forced importance of following a healthy diet and getting regular exercise (4) Encounter for counseling regarding advance directives: Code(s): Z71.89 - Other specified counseling Plan: Initiated the conversation about Advanced Directives. Advanced Directives help patients prepare for current and future decisions about their medical treatment and place of care. Discussed with patient that it is a process where a patients current condition and prognosis are reviewed, their wishes for information regarding their illness are elicited, and likely medical dilemmas are presented and options discussed. Healthcare proxy form completed today The form can be amended as needed, reviewed yearly and make changes as needed (5) Annual visit for general adult medical examination with abnormal findings: Code(s): Z00.01 - Encounter for general adult medical examination with abnormal findings Plan: Will check appropriate labs. Continue dental visit every 6 months and regular eye exams, at least every 2 years, goes to [facility]. Continued with regular exercise, currently still getting physical therapy for his right ankle, and continue with healthy eating habits voiding eating late at night, and avoiding eating a lot of fast foods and pastries Instructed to do self testicular exam check for any mass. Up-to-date with his tetanus diphtheria booster, reminded to get yearly flu shot does not want to get COVID vaccine. Due for repeat colon cancer screening next year patient would like to get a screening colonoscopy instead of Cologuard (6) Hypercalcemia: Code(s): E83.52 - Hypercalcemia Plan: Ordered ionized serum calcium. The patient not taking any supplement Orders: Orders Basic Metabolic Panel Fasting Today E66.9 - Obesity, unspecified, E78.00 - Pure hypercholesterolemia, unspecified, E83.52 - Hypercalcemia, N40.1 - Benign prostatic hyperplasia with lower urinary tract symptoms, Z00.01 - Encounter for general adult medical examination with abnormal findings, Z71.89 - Other specified counseling Lipid Panel Today E66.9 - Obesity, unspecified, E78.00 - Pure hypercholesterolemia, unspecified, E83.52 - Hypercalcemia, N40.1 - Benign prostatic hyperplasia with lower urinary tract symptoms, Z00.01 - Encounter for general adult medical examination with abnormal findings, Z71.89 - Other specified counseling Complete Blood Count Auto Diff Today E66.9 - Obesity, unspecified, E78.00 - Pure hypercholesterolemia, unspecified, E83.52 - Hypercalcemia, N40.1 - Benign prostatic hyperplasia with lower urinary tract symptoms, Z00.01 - Encounter for general adult medical examination with abnormal findings, Z71.89 - Other specified counseling Calcium, Ionized Today E66.9 - Obesity, unspecified, E78.00 - Pure hypercholesterolemia, unspecified, E83.52 - Hypercalcemia, N40.1 - Benign prostatic hyperplasia with lower urinary tract symptoms, Z00.01 - Encounter for general adult medical examination with abnormal findings, Z71.89 - Other specified counseling Aspartate Amino Transferase Today E66.9 - Obesity, unspecified, E78.00 - Pure hypercholesterolemia, unspecified, E83.52 - Hypercalcemia, N40.1 - Benign prostatic hyperplasia with lower urinary tract symptoms, Z00.01 - Encounter for general adult medical examination with abnormal findings, Z71.89 - Other specified counseling Alanine Aminotransferase Today E66.9 - Obesity, unspecified, E78.00 - Pure hypercholesterolemia, unspecified, E83.52 - Hypercalcemia, N40.1 - Benign prostatic hyperplasia with lower urinary tract symptoms, Z00.01 - Encounter for general adult medical examination with abnormal findings, Z71.89 - Other specified counseling PSA,Total (Free>4and<10) Today E66.9 - Obesity, unspecified, E78.00 - Pure hypercholesterolemia, unspecified, E83.52 - Hypercalcemia, N40.1 - Benign prostatic hyperplasia with lower urinary tract symptoms, Z00.01 - Encounter for general adult medical examination with abnormal findings, Z71.89 - Other specified counseling Vitamin D 25-OH Total Today E66.9 - Obesity, unspecified, E78.00 - Pure hypercholesterolemia, unspecified, E83.52 - Hypercalcemia, N40.1 - Benign prostatic hyperplasia with lower urinary tract symptoms, Z00.01 - Encounter for general adult medical examination with abnormal findings, Z71.89 - Other specified counseling
[2024-05-28 08:56] VITALS: BP 118/86; PULSE 83; RESP 16; TEMP 36.8; O2SAT 96; BMI 35.9
== END 2024-05-28 09:22 | disposition home or self-care (01) ==
LOC: HO.HMCC 08:11
PROVIDERS: PCP Internal Medicine; Visit Provider Internal Medicine
DX: Z00.00 Encounter for general adult medical examination without abnormal findings (principal); N40.1 Benign prostatic hyperplasia with lower urinary tract symptoms; Z68.35 Body mass index [BMI] 35.0-35.9, adult; E66.9 Obesity, unspecified; E78.00 Pure hypercholesterolemia, unspecified; Z71.89 Other specified counseling; E83.52 Hypercalcemia